=== PATIENT | male | born 1940 ===

== ENCOUNTER 2020-06-21 13:51 | Inpatient (IN) | payer MEDICARE ==
[~2020-06-21] VITALS: Ht 165.1 cm; Wt 66.4 kg
[2020-06-21 19:35] VITALS: BP 159/73
[2020-06-21] MEDS ORDERED: ONDANSETRON 4MG/2ML VIAL IV PRN (20:45)
[2020-06-21] MEDS ORDERED: ACETAMINOPHEN TAB 650MG DOSE (2X325MG) PO PRN (20:45)
--- NOTE | 2020-06-21 20:54 | HPEPDOC ---
General Date of Admission 06/21/20 Date of Service: Jun 21, 2020 Chief Complaint The patient is a 79-year-old male admitted with a reason for visit of Small Bowel Obstruction/Pancreatitis. Source: Patient Exam Limitations: No limitations Timing/Duration: 24 hours Severity: Mild History of Present Illness Patient is 79 years old male with past medical history of hypertension presented to the hospital with abdominal pain around right low and left low quadrants. Earlier today patient was admitted to the [facility] where CT of abdomen was done and showed large hiatal hernia, fluid-filled loops of small bowel with little or no fluid in the colon suggestive of a possible small bowel obstruction versus severe ileus, plus diverticulosis throughout the colon and what appeared to be inflammatory changes in the right lower quadrant, no gallbladder splenic, pancreatic or adrenal abnormalities. Patient stated that he has been having nausea and a few episodes of vomiting for past 24 hours. Labs were done in the [facility] and showed no leukocytosis, lactic acid 1.3, sodium 137, potassium 4, creatinine 0.99. EKG negative for acute ischemic changes. Of note patient had inguinal hernia repair around 25 years ago. Allergies Coded Allergies: Penicillins (Unverified Allergy, Unknown, 06/21/20) Past Medical History Medical History Hypertension, osteoarthritis, hyperlipidemia Surgical History Bilateral inguinal hernias repair Family History I personally reviewed a family history and found not pertinent Social History * Smoker: former Smoker Alcohol: occationally Drugs: denies A-FIB/CHADSVASC A-FIB History Current/History of A-Fib/PAF?: No Current PO Anticoag Therapy: No Review of Systems Constitutional: Denies: Chills Eyes: Denies: Pain ENT: Denies: Head Aches Skin: Denies: Rash Pulmonary: Denies: Dyspnea Cardiovascular: Denies: Chest Pain, Palpitations Gastrointestinal: Reports: Nausea, Vomiting, Abdominal Pain Genitourinary: Denies: Dysuria, Frequency Hematologic: Denies: Bruising Endocrine: Denies: Polydipsia Musculoskeletal: Denies: Neck Pain, Back Pain Neurological: Denies: Weakness, Numbness Psych: Reports: Mood Normal Physical Examination General Exam: Positive: Alert, Cooperative Eye Exam: Positive: PERRLA ENT Exam: Positive: Atraumatic Neck Exam: Positive: Supple; Negative: JVD Chest Exam: Positive: Clear to auscultation Heart Exam: Positive: Rate Normal Telemetry: Positive: No significant arrhythmia Abdomen Exam: Positive: BS Hyperactive, Soft, Tenderness (over right low and left lower quadrants) Extremity Exam: Negative: Clubbing, Cyanosis Skin Exam: Positive: Nl turgor and temperature Neuro Exam: Positive: Strength at 5/5 X4 ext, Cranial Nerves 3-12 NL Psych Exam: Positive: Mental status NL Vital Signs Vital Signs Date Time Temp Pulse Resp B/P (MAP) Pulse Ox O2 Delivery O2 Flow Rate FiO2 06/21/20 19:35 97.4 79 18 159/73 (101) 96 Room Air Assessment/Plan Patient is 79 years old male with past medical history of hypertension presented to the hospital with abdominal pain around right low and left low quadrants. Earlier today patient was admitted to the [facility] where CT of abdomen was done and showed large hiatal hernia, fluid-filled loops of small bowel with little or no fluid in the colon suggestive of a possible small bowel obstruction versus severe ileus, plus diverticulosis throughout the colon and what appeared to be inflammatory changes in the right lower quadrant, no gallbladder splenic, pancreatic or adrenal abnormalities. Patient stated that he has been having nausea and a few episodes of vomiting for past 24 hours. Labs we re done in the [facility] and showed no leukocytosis, lactic acid 1.3, sodium 137, potassium 4, creatinine 0.99, lipase elevated to 1400. EKG negative for acute ischemic changes. Of note patient had inguinal hernia repair around 25 years ago. Problems (1) Abdominal pain Status: Acute Problem Text: CT of abdomen was done and showed large hiatal hernia, fluid- filled loops of small bowel with little or no fluid in the colon suggestive of a possible small bowel obstruction versus severe ileus, plus diverticulosis throughout the colon and what appeared to be inflammatory changes in the right lower quadrant, no gallbladder splenic, pancreatic or adrenal abnormalities Appreciate/agree with surgical consult Lipase elevation most likely secondary to partial small bowel obstruction. Patient does not have left sided upper abdominal pain. CT negative for pancreatitis. IV fluid Nothing by mouth for now Pain management Zofran IV (2) Hypertension Status: Chronic Problem Text: Continue home cardioprotective medication Plan / VTE VTE Prophylaxis Ordered?: Yes ROBINSON CARTER DO Jun 21, 2020 20:54
[2020-06-21] MEDS ORDERED: MORPHINE 2 MG/ML 1ML VIAL (J2270) IV PRN (21:00)
[2020-06-21] MEDS ORDERED: LOSA50TA88 PO (21:04)
[2020-06-21] MEDS ORDERED: PRAV40TA2 PO (21:04)
[2020-06-21] MEDS: D5W 1,000 ML IV SCH (21:06)
[2020-06-21 21:13] LABS: HEMATOCRIT 48.9 % (42.0-52.0); MEAN CORPUSCULAR HEMOGLOBIN 30.1 pg (27.0-33.0); MEAN CORPUSCULAR HGB CONC 32.7 g/dl (32.0-36.5); MEAN CORPUSCULAR VOLUME 91.9 fl (80.0-96.0); PLATELET COUNT, AUTOMATED 180 10^3/uL (150-450); RED BLOOD COUNT 5.32 10^6/uL (4.30-6.10)
[2020-06-21 21:44] LABS: ALT/SGPT 22 U/L (12-78); BILIRUBIN,TOTAL 0.6 MG/DL (0.2-1.0); BLOOD UREA NITROGEN 18 MG/DL (7-18); CALCIUM LEVEL 7.8 MG/DL (8.8-10.2); CARBON DIOXIDE LEVEL 27 MEQ/L (21-32); CHLORIDE LEVEL 107 MEQ/L (98-107); CREATININE FOR GFR 0.86 MG/DL (0.70-1.30); GLOMERULAR FILTRATION RATE > 60.0 (>35); GLUCOSE, FASTING 128 MG/DL (70-100); POTASSIUM SERUM 4.8 MEQ/L (3.5-5.1); SODIUM LEVEL 139 MEQ/L (136-145); TOTAL PROTEIN 5.9 GM/DL (6.4-8.2)
[2020-06-21] MEDS: KETOROLAC 30 MG/ML 1ML VIAL IV SCH (22:01)
--- NOTE | 2020-06-21 22:24 | REPVR ---
PROCEDURE INFORMATION: Exam: XR Abdomen, 1 View Exam date and time: 06/21/2020 8:32 PM Age: 79 years old Clinical indication: Condition or disease; Intestinal condition; Obstruction; Additional info: Sbo TECHNIQUE: Imaging protocol: XR of the abdomen. Views: Frontal supine view of the abdomen. 1 View. COMPARISON: No relevant prior studies available. FINDINGS: Gastrointestinal tract: Mild gas throughout the GI tract without abnormal dilatation. Organs: Probable contrast within the urinary bladder. Bones/joints: Degenerative spurring is noted in the lower thoracic and lumbar spine. Other findings: Prostatic calcification. IMPRESSION: 1. Prostatic calcification with probable contrast in the urinary bladder. 2. Otherwise negative abdomen with mild gas which is within normal limits. Electronically signed by: Zeke Gutierrez On 06/21/2020 22:24:19 PM
[2020-06-22] VITALS: BP 111/53
[2020-06-22] MEDS: KETOROLAC 30 MG/ML 1ML VIAL IV SCH ×4 (04:08→21:00)
[2020-06-22 04:52] LABS: HEMOGLOBIN 14.4 g/dl (13.5-17.5); MEAN CORPUSCULAR HEMOGLOBIN 30.2 pg (27.0-33.0); MEAN CORPUSCULAR HGB CONC 32.7 g/dl (32.0-36.5); MEAN CORPUSCULAR VOLUME 92.2 fl (80.0-96.0); PLATELET COUNT, AUTOMATED 160 10^3/uL (150-450); RED BLOOD COUNT 4.77 10^6/uL (4.30-6.10); WHITE BLOOD COUNT 8.1 10^3/uL (4.0-10.0)
[2020-06-22 05:18] LABS: ALBUMIN 2.7 GM/DL (3.2-5.2); ALT/SGPT 19 U/L (12-78); BILIRUBIN,TOTAL 0.6 MG/DL (0.2-1.0); BLOOD UREA NITROGEN 19 MG/DL (7-18); CALCIUM LEVEL 7.6 MG/DL (8.8-10.2); CARBON DIOXIDE LEVEL 25 MEQ/L (21-32); CHLORIDE LEVEL 106 MEQ/L (98-107); CREATININE FOR GFR 0.73 MG/DL (0.70-1.30); GLOMERULAR FILTRATION RATE > 60.0 (>35); GLUCOSE, FASTING 117 MG/DL (70-100); POTASSIUM SERUM 3.7 MEQ/L (3.5-5.1); SODIUM LEVEL 136 MEQ/L (136-145); TOTAL PROTEIN 5.2 GM/DL (6.4-8.2)
[2020-06-22] MEDS: D5W 1,000 ML IV SCH ×2 (07:30→17:41)
[2020-06-22 08:00] VITALS: BP 144/76
[2020-06-22] MEDS ORDERED: HEPARIN SOD (PORCINE) 5000UNITS/ML 1ML VIAL/SYRINGE SC SCH (09:00)
[2020-06-22] MEDS: LOSARTAN 50MG TABLET PO SCH (10:00)
--- NOTE | 2020-06-22 11:51 | IPNPDOC ---
Date Seen The patient was seen on 06/22/20. Progress Note Hospitalist Attending Physician 06/22/20 Progress note dictated. If urgent written documentation is needed, please 1) call [facility] [phone] for STAT inoculator, and 2)Medical Records [phone] to STAT scan into EMR. VS, I&O, 24H, Fishbone Vital Signs/I&O Vital Signs Date Time Temp Pulse Resp B/P (MAP) Pulse Ox O2 Delivery O2 Flow Rate FiO2 06/22/20 08:00 97.3 68 16 144/76 (98) 94 06/22/20 00:00 Room Air I&O- Last 24 Hours up to 6 AM 06/22/20 06:00 Intake Total 0 ml Output Total 500 ml Balance -500 ml Laboratory Data 24H LABS Laboratory Tests 2 06/21/20 21:02: Nucleated Red Blood Cells % (auto) 0.0, Anion Gap 5L, Glomerular Filtration Rate > 60.0, Calcium Level 7.8L, Total Bilirubin 0.6, Aspartate Amino Transf (AST/SGOT) 22, Alanine Aminotransferase (ALT/SGPT) 22, Alkaline Phosphatase 57, Total Protein 5.9L, Albumin 3.0L, Albumin/Globulin Ratio 1.0 06/21/20 21:03: Lactic Acid Level 1.3 06/22/20 04:39: Nucleated Red Blood Cells % (auto) 0.0, Anion Gap 5L, Glomerular Filtration Rate > 60.0, Calcium Level 7.6L, Total Bilirubin 0.6, Aspartate Amino Transf (AST/ SGOT) 24, Alanine Aminotransferase (ALT/SGPT) 19, Alkaline Phosphatase 50, Total Protein 5.2L, Albumin 2.7L, Albumin/Globulin Ratio 1.1, Lactic Acid Level 1.0, Magnesium Level 2.0 CBC/BMP Laboratory Tests 06/21/20 21:02 06/22/20 04:39 WILLIAN BARRY MD Jun 22, 2020 11:50
[2020-06-22 12:00] VITALS: BP 145/82
[2020-06-22] MEDS ORDERED: PROMETHAZINE INJ 25 MG/ML VIAL (J2550) IV PRN (12:00)
[2020-06-22] MEDS ORDERED: METOCLOPRAMIDE INJ 10MG/2ML VIAL (J2765 PER 1) IV ONE (12:00)
[2020-06-22] MEDS: ONDANSETRON 4MG/2ML VIAL IV SCH ×3 (14:58→21:52)
[2020-06-22 16:00] VITALS: BP 160/77
[2020-06-22] MEDS ORDERED: PRAVASTATIN 20 MG TAB PO SCH (21:00)
[2020-06-22 22:00] VITALS: BP 165/86
[2020-06-22] MEDS ORDERED: NITROGLYCERIN 2% OINT 1 GM *U/D* PKT TOP SCH (22:00)
[2020-06-22 22:36] VITALS: BP 167/87
[2020-06-22] MEDS: NITROGLYCERIN 2% OINT 1 GM *U/D* PKT TOP SCH (23:09)
[2020-06-23] VITALS (10 sets, daily range): BP systolic 129–174; BP diastolic 70–80
[2020-06-23] MEDS: LR 1,000 ML IV SCH ×3 (00:01→21:58)
[2020-06-23] MEDS: PANTOPRAZOLE 40MG VIAL (C9113 PER 1) IV SCH ×2 (00:02→09:28)
[2020-06-23] MEDS: ONDANSETRON 4MG/2ML VIAL IV SCH ×2 (03:00→09:29)
[2020-06-23] MEDS: KETOROLAC 30 MG/ML 1ML VIAL IV SCH ×4 (03:53→21:59)
[2020-06-23] MEDS: NITROGLYCERIN 2% OINT 1 GM *U/D* PKT TOP SCH ×4 (04:00→22:00)
[2020-06-23] MEDS ORDERED: NITROGLYCERIN 2% OINT 1 GM *U/D* PKT TOP SCH (04:00)
[2020-06-23 06:37] LABS: HEMATOCRIT 43.5 % (42.0-52.0); HEMOGLOBIN 14.6 g/dl (13.5-17.5); MEAN CORPUSCULAR HEMOGLOBIN 30.2 pg (27.0-33.0); MEAN CORPUSCULAR HGB CONC 33.6 g/dl (32.0-36.5); MEAN CORPUSCULAR VOLUME 89.9 fl (80.0-96.0); PLATELET COUNT, AUTOMATED 170 10^3/uL (150-450); RED BLOOD COUNT 4.84 10^6/uL (4.30-6.10); WHITE BLOOD COUNT 6.4 10^3/uL (4.0-10.0)
[2020-06-23 06:38] LABS: BASO % 0.2 % (0.0-1.0); LYMPH # 0.9 10^3/uL (1.5-5.0); LYMPH % 14.4 % (24.0-44.0); MONO # 0.6 10^3/uL (0.0-0.8); MONO % 8.5 % (0.0-5.0); NEUTROPHILS # 4.9 10^3/uL (1.5-8.5)
[2020-06-23 07:00] LABS: BLOOD UREA NITROGEN 18 MG/DL (7-18); CALCIUM LEVEL 8.1 MG/DL (8.8-10.2); CARBON DIOXIDE LEVEL 26 MEQ/L (21-32); CHLORIDE LEVEL 101 MEQ/L (98-107); CREATININE FOR GFR 0.78 MG/DL (0.70-1.30); GLOMERULAR FILTRATION RATE > 60.0 (>35); GLUCOSE, FASTING 105 MG/DL (70-100); POTASSIUM SERUM 3.9 MEQ/L (3.5-5.1); SODIUM LEVEL 132 MEQ/L (136-145)
[2020-06-23 07:04] LABS: LYMPHOCYTES 15 % (16-44); MONOCYTES 6 % (0-5); NEUTROPHILS 79 % (28-66)
[2020-06-23 07:05] LABS: PLATELET ESTIMATE NORMAL (NORMAL)
[2020-06-23] MEDS: LOSARTAN 50MG TABLET PO SCH (09:28)
[2020-06-23] MEDS ORDERED: BUPIVACAINE HCL 0.25% 30ML VIAL As Ordered ONE (14:21)
[2020-06-23] MEDS ORDERED: ETOMIDATE INJ 20MG/10ML VIAL As Ordered ONE (15:03)
[2020-06-23] MEDS ORDERED: ROCURONIUM BROMIDE 50 MG/5 ML VIAL As Ordered ONE ×2 (15:03→15:19)
[2020-06-23] MEDS ORDERED: ONDANSETRON 4MG/2ML VIAL As Ordered ONE (15:03)
[2020-06-23] MEDS ORDERED: propofoL 200 MG/20 ML VIAL As Ordered ONE (15:03)
[2020-06-23] MEDS ORDERED: dexameTHASONE 4 MG/ML 1ML VIAL (J1100 PER 1MG) As Ordered ONE (15:03)
[2020-06-23] MEDS ORDERED: fentaNYL 250 MCG/5 ML INJECTION (J3010) As Ordered ONE (15:03)
[2020-06-23] MEDS ORDERED: METOCLOPRAMIDE INJ 10MG/2ML VIAL (J2765 PER 1) As Ordered ONE (15:03)
[2020-06-23] MEDS ORDERED: SUGAMMADEX SODIUM 500 MG/5 ML VIAL (BRIDION) As Ordered ONE (15:03)
[2020-06-23] MEDS ORDERED: LIDOCAINE 2% 100MG/5ML SDV (FOR ANES.) As Ordered ONE (15:04)
[2020-06-23] MEDS ORDERED: PHENYLephrine HCL 500 MCG/5 ML (100MCG/ML) SYRINGE (J2370) As Ordered ONE (15:06)
[2020-06-23] MEDS ORDERED: cefoTEtan INJ 2GM VIAL (S0074 PER 500MG) As Ordered ONE (15:06)
[2020-06-23] MEDS ORDERED: ePHEDrine SULFATE 25 MG/5 ML(5MG/ML) SYRINGE As Ordered ONE (15:06)
[2020-06-23] MEDS ORDERED: HYDROmorphone HCL 2 MG/ML 1ML VIAL (J1170) As Ordered ONE (15:58)
[2020-06-23] MEDS ORDERED: DESFLURANE 240 ML INHALANT As Ordered ONE (16:13)
[2020-06-23] MEDS ORDERED: ACETAMINOPHEN 1000MG 100ML IV BTL (OFIRMEV) (J0131 PER 10MG) As Ordered ONE (16:23)
[2020-06-23] MEDS ORDERED: MORPHINE 2 MG/ML 1ML VIAL (J2270) IV PRN (17:00)
[2020-06-23] MEDS ORDERED: ONDANSETRON 4MG/2ML VIAL IV PRN ×2 (17:00→17:15)
[2020-06-23] MEDS ORDERED: oxyCODONE 5MG TAB PO PRN (17:15)
[2020-06-23] MEDS ORDERED: fentaNYL 100 MCG/2 ML INJECTION (J3010) IV PRN (17:15)
[2020-06-24] MEDS: KETOROLAC 30 MG/ML 1ML VIAL IV SCH ×3 (05:15→16:00)
[2020-06-24] MEDS: LR 1,000 ML IV SCH ×2 (05:15→08:54)
[2020-06-24] MEDS: NITROGLYCERIN 2% OINT 1 GM *U/D* PKT TOP SCH ×4 (05:20→21:33)
[2020-06-24 06:00] VITALS: BP 134/77
[2020-06-24] MEDS: PANTOPRAZOLE 40MG VIAL (C9113 PER 1) IV SCH (08:54)
[2020-06-24] MEDS: LOSARTAN 50MG TABLET PO SCH (08:56)
[2020-06-24 10:00] VITALS: BP 134/67
[2020-06-24 11:49] LABS: HEMATOCRIT 35.9 % (42.0-52.0); MEAN CORPUSCULAR HEMOGLOBIN 30.2 pg (27.0-33.0); MEAN CORPUSCULAR HGB CONC 33.4 g/dl (32.0-36.5); MEAN CORPUSCULAR VOLUME 90.2 fl (80.0-96.0); PLATELET COUNT, AUTOMATED 154 10^3/uL (150-450); RED BLOOD COUNT 3.98 10^6/uL (4.30-6.10); WHITE BLOOD COUNT 5.8 10^3/uL (4.0-10.0)
[2020-06-24 12:21] LABS: BLOOD UREA NITROGEN 23 MG/DL (7-18); CALCIUM LEVEL 8.1 MG/DL (8.8-10.2); CARBON DIOXIDE LEVEL 30 MEQ/L (21-32); CHLORIDE LEVEL 104 MEQ/L (98-107); CREATININE FOR GFR 0.94 MG/DL (0.70-1.30); GLOMERULAR FILTRATION RATE > 60.0 (>35); GLUCOSE, FASTING 89 MG/DL (70-100); MAGNESIUM LEVEL 2.1 MG/DL (1.8-2.4); POTASSIUM SERUM 4.4 MEQ/L (3.5-5.1); SODIUM LEVEL 137 MEQ/L (136-145)
[2020-06-24 14:00] VITALS: BP 136/67
--- NOTE | 2020-06-24 17:36 | CR ---
DATE OF CONSULTATION: 06/21/2020 REASON FOR CONSULTATION: Abdominal pain. HISTORY OF PRESENT ILLNESS: The patient is an 79-year-old man who reports that he was awakened at approximately 2345 hours on 06/20/2020. He described a sensation of feeling full and perhaps needing to have a bowel movement. He described discomfort across the lower quadrants of the abdomen. He got out of bed and tried to find a comfortable position. At one point, he tried drinking half a cup of tea and eating a few prunes thinking that if he could stimulate his bowels he would feel better, but he developed a small amount of nausea and vomiting. He denied any definite fevers or chills. He did at one point feel as if he would feel better if he could throw up and he induced vomiting without any result. The pain become more severe as the morning came on and he presented at [facility] for evaluation. At [place], he underwent evaluation with some lab work. He had a CT scan of the abdomen and pelvis obtained. His labs showed some mild elevations of his amylase and lipase but his liver function tests were apparently otherwise unremarkable. Other electrolytes and hematologic studies were without significant abnormality. CT scan was interpreted as showing possibly an ileus versus a partial small bowel obstruction. The provider at [facility] contacted the hospitalist at [facility] and also myself and, after discussing this, the patient was transferred to [facility] for admission by the hospitalist. I am now requested to see the patient and offer a surgical opinion. ALLERGIES: The patient reports his only allergy is to the use of steroids and antibiotics at the same time, which apparently has caused him to develop jaundice on two prior occasions. MEDICATIONS: The patients only medications prior to admission include: - pravastatin - losartan MEDICAL HISTORY: Significant for some hypertension and also hyperlipidemia. He does have a history of some osteoarthritis. SURGICAL HISTORY: Significant for a left inguinal hernia repair. He has had a right knee replacement and bilateral cataract extractions. He has had several colonoscopies, most recently just over a year ago in [place], [place]. SOCIAL HISTORY: He is reportedly a former smoker and has alcohol occasionally. FAMILY HISTORY: Not helpful. REVIEW OF SYSTEMS: Reveals no history of chest pain or palpitations. He denies any history of seizure or stroke. He has had no history of deep venous thrombosis (DVT) or pulmonary embolus. He denies dysuria but does have nocturia times one as well as some weakening of his urinary stream. He has a history of kidney stones 40 years ago with no recurrence. He denies any melena or hematochezia. He has some joint issues with some arthritis but no significant limitation on his activity. PHYSICAL EXAMINATION: Most recent vital signs show a temperature of 97.4, with a pulse of 79, respirations of 18, and a blood pressure of 159/73. Pulse oximetry on room air was 96%. Patient is lying quietly on his bed. He is alert and oriented and appears comfortable at rest. Skin is warm and dry. Sclerae are anicteric. Mucous membranes are moist. The neck is supple without mass. Heart exam shows a regular rate and rhythm. Lungs are clear to auscultation bilaterally. He has no edema in the upper extremities and he has palpable radial pulses bilaterally. Abdomen is flat. He has an old oblique left lower quadrant scar consistent with a prior hernia repair. He has bowel sounds present in all four quadrants. There is some very mild tympany in all four quadrants to percussion. Palpation shows the abdomen to be soft throughout though he has some mild direct tenderness in the lower quadrants bilaterally perhaps slightly more on the right than the left. There is no evidence of inguinal or umbilical hernia. He has no inguinal adenopathy. The lower extremities are without edema and he has palpable dorsalis pedis pulses bilaterally. His laboratory studies from [place] were reviewed. He did have mild to moderate elevations of the amylase and lipase with the lipase up to approximately 1400. The remainder of his labs were without significant abnormality and a lactic acid was normal. I reviewed the images of the CT scan that were provided on a disc. The images showed no free intraabdominal fluid or air. The solid organs are without significant abnormality. There is some air and fluid in the small bowel. There is some mild distention of several small segments of the bowel but this does not have an appearance typical for a small bowel obstruction. There is some air in the colon as well as a small amount of stool on the right. The gallbladder is not well seen but there are no abnormalities present. The appendix is noted and appears normal. He does have a hiatal hernia of moderate size. KUB done at [facility] after arrival shows some air-filled small bowel loops basically throughout the abdomen with some air in the right colon as well. There is some contrast in the bladder. He had repeat laboratory studies at 2100 hours at [facility] and these show a white count of 10, hemoglobin 16, hematocrit of 49, and a platelet count of 180,000. Chemistries showed normal electrolytes with a BUN of 18, creatinine 0.86, and a glucose of 128. Lactic acid was 1.3. Liver function tests were normal with a total protein of 5.9 and an albumin of 3.0. IMPRESSION: Patient has abdominal pain of unclear etiology. His discomfort is primarily across the lower quadrants bilaterally. He has not had any intraabdominal surgery to create adhesions. There is no tumor evident within the abdomen nor any process causing a clearcut obstruction. RECOMMENDATIONS: At this point, I would recommend observation overnight. He should remain nothing by mouth for now and continue on some IV maintenance fluid. Analgesics are certainly appropriate as needed. I do not see any need for antibiotics at this time as we have not identified an infection. He should have repeat labs in the morning to see if there has been any significant changes overnight. I will reassess him in the morning personally. If he has significant persistent pain, it may be worth considering either repeating his scan or even considering a diagnostic laparoscopy. The patient was counseled that the etiology of his pain is not clear but that I do think it is appropriate for him to be monitored in the hospital and to be reassessed in the morning. He is agreeable with this plan. EVANGELIST
--- NOTE | 2020-06-24 17:40 | IPN ---
DATE: 06/22/2020 HISTORY: Patient was admitted by the hospitalist yesterday with some abdominal pain which was fairly diffuse initially and became somewhat more localized through the lower quadrant. He has had some mild abdominal distention. Today, he has had several episodes of some limited quantities of emesis with some bilious fluid. He remains nothing by mouth. He denies any passage of flatus or stool. A repeat KUB last evening was more suggestive of a small bowel obstruction with a lot of air throughout the small bowel. Vital signs show that he has been afebrile. His pulse is in the 60s to 80s and his blood pressure is normal to slightly hypertensive with a systolic in the 160s. Room air oxygen saturation is normal. Intake and output shows that he has had fairly balanced intake and output. PHYSICAL EXAMINATION: Patient is alert. He appears somewhat uncomfortable. He is alert and oriented. Heart exam shows a regular rhythm. The abdomen is mildly protuberant. He does have some bowel sounds present. There is some mild tenderness particularly in the right lower quadrant. There is perhaps some mild tympany to percussion throughout the abdomen. LABORATORY STUDIES: Today, show a white of 8, hemoglobin 14, hematocrit 44, and a platelet count of 160,000. His chemistry profile shows sodium 136, potassium 3.7, chloride 106, CO2 of 25, BUN of 19, creatinine 0.7, and a glucose of 117. Lactic acid is 1.0. His acute abdominal series today shows some differential air fluid levels on the upright. The proximal right colon has a small amount of air and stool present. There is no free air noted. I reviewed his CT scan and in retrospect I believe there likely is some sort of obstructing band or twist in the distal ileum in the right lower quadrant. This is not discrete, but there appears to be a bunched area of small bowel which is perhaps slightly more distended than other areas of the abdomen. IMPRESSION: Small bowel obstruction. PLAN: Patient was counseled that if he has not improved by tomorrow morning he should have surgery and I would attempt to perform this laparoscopically. We discussed a possible nasogastric (NG) tube, but this was attempted four times at [facility] without success and it was quite uncomfortable to him and we will not reattempt placement. He will remain on some IV hydration. We will see how he looks in the morning. EVANGELIST
[2020-06-24 18:00] VITALS: BP 132/77
[2020-06-24] MEDS ORDERED: IBUPROFEN 400 MG TAB PO PRN (18:00)
[2020-06-24 22:00] VITALS: BP 138/76
[2020-06-25 02:00] VITALS: BP 140/80
[2020-06-25] MEDS: NITROGLYCERIN 2% OINT 1 GM *U/D* PKT TOP SCH (04:39)
[2020-06-25 06:00] VITALS: BP 149/71
[2020-06-25 06:35] LABS: BASO % 0.2 % (0.0-1.0); EOS # 0.1 10^3/uL (0.0-0.5); EOS % 2.8 % (0.0-3.0); HEMATOCRIT 39.6 % (42.0-52.0); LYMPH # 1.1 10^3/uL (1.5-5.0); LYMPH % 22.5 % (24.0-44.0); MEAN CORPUSCULAR HGB CONC 32.8 g/dl (32.0-36.5); MEAN CORPUSCULAR VOLUME 91.2 fl (80.0-96.0); MONO # 0.5 10^3/uL (0.0-0.8); MONO % 9.7 % (0.0-5.0); NEUTROPHILS # 3.3 10^3/uL (1.5-8.5); NEUTROPHILS % 64.4 % (36.0-66.0); PLATELET COUNT, AUTOMATED 154 10^3/uL (150-450); RED BLOOD COUNT 4.34 10^6/uL (4.30-6.10); WHITE BLOOD COUNT 5.1 10^3/uL (4.0-10.0)
[2020-06-25 07:08] LABS: BLOOD UREA NITROGEN 20 MG/DL (7-18); CALCIUM LEVEL 7.8 MG/DL (8.8-10.2); CARBON DIOXIDE LEVEL 28 MEQ/L (21-32); CHLORIDE LEVEL 105 MEQ/L (98-107); CREATININE FOR GFR 0.71 MG/DL (0.70-1.30); GLOMERULAR FILTRATION RATE > 60.0 (>35); GLUCOSE, FASTING 84 MG/DL (70-100); POTASSIUM SERUM 3.9 MEQ/L (3.5-5.1); SODIUM LEVEL 137 MEQ/L (136-145)
[2020-06-25 08:17] VITALS: BP 149/72
[2020-06-25] MEDS: LOSARTAN 50MG TABLET PO SCH (08:17)
--- NOTE | 2020-06-25 09:11 | IPN ---
DATE: 06/23/2020 SUBJECTIVE: Patient is seen and examined at the bedside. Chart has been reviewed. Patients blood pressure has been uncontrolled due to abdominal discomfort, was given nitroglycerin 1 gram every 6 hours and losartan 50 daily. Patient is awaiting lysis of adhesions, surgical exploration for small bowel obstruction. This morning, continues to have some nausea, had two episodes of emesis this morning, did pass a little bit of flatus earlier but still with increasing abdominal distention. No fever or chills overnight. No shortness of breath despite IV fluids since admission. He denies any chest pain, pressure, tightness, palpitations, or lightheadedness. No dysuria, urgency, frequency. OBJECTIVE: PHYSICAL EXAMINATION: Vital signs: Temperature 98.2, pulse 83, respiratory rate 19, blood pressure 136/74, 97% on room air. Generally: Awake, alert, oriented times three, answering questions appropriately. Anicteric. No jaundice or icterus. Patient has no jugular venous distension, no thyromegaly, no cervical lymphadenopathy. Lungs: Clear to auscultation. Abdomen: Distended, much more so today. No rebound or guarding. Hypoactive bowel sounds throughout. Extremities: No cyanosis, clubbing, or pitting edema. White count 6.4, hemoglobin 14, hematocrit 43, platelet count 170, sodium 132, potassium 3.9, chloride 101, bicarbonate 26, BUN 18, creatinine 0.78, glucose of 105. Abdominal x-ray prostatic calcification with positive contrast in urinary bladder. Negative abdomen with mild gas within normal limits. ASSESSMENT AND PLAN: This is an 79-year-old male admitted on 06/21/2020 with history of hypertension, history of hernia repair in the past bilaterally, presents with increasing abdominal distention, nausea, vomiting, found to have possible small bowel obstruction versus ileus. Patient did not improve, unable to pass nasogastric (NG) tube, currently with the following issues: 1. Small bowel obstruction. 2. Uncontrolled hypertension. 3. History of inguinal hernia repair bilaterally. PLAN: Per Dr. Azul, patient is to undergo lysis of adhesions, exploratory laparotomy in the operating room for small bowel obstruction today. No obstruction was seen on the CT abdomen and pelvis. Patient is kept nothing by mouth with IV fluids. Nitro patch per anesthesia is to be held for now. He is medically optimized to proceed to surgery. Deep venous thrombosis (DVT) prophylaxis via compression stockings. Patients Lovenox has been discontinued as of yesterday. MTDD
--- NOTE | 2020-06-25 09:12 | IPN ---
DATE: 06/24/2020 SUBJECTIVE: Patient seen and examined at bedside. Chart has been reviewed. This morning, patient said he is tolerating his mick orly at the bedside, passing flatus, 2/10 pain from the incision site from prior laparoscopy, laparotomy, and decompression of the small bowel. OBJECTIVE: PHYSICAL EXAMINATION: VITAL SIGNS: Temperature 98.5, pulse 73, respiratory rate 17, blood pressure 134/67, 94% on room air. GENERAL: Patient is awake, alert, oriented times three, answering questions appropriately. No respiratory distress. No jugular venous distention (JVD) or thyromegaly. Dry mucous membranes. LUNGS: Clear to auscultation. No wheezing, rales, or rhonchi. HEART: S1, S2, sinus rhythm. ABDOMEN: Soft, slightly tender to palpation. Positive bowel sounds. EXTREMITIES: No cyanosis, clubbing, or pitting edema. June 23 CBC has been reviewed, metabolic panel. ASSESSMENT AND PLAN: This is an 79-year-old male, admitted on 06/21/2020 with complaints of abdominal pain, distention, prior history of bilateral inguinal hernia repair, diagnosed with possible ileus versus small-bowel obstruction. Transferred from [facility]. Evaluated by general surgery. Failed on supportive care with intractable, nausea, vomiting, and increasing abdominal distention. Patient was brought to the operating room, status post laparoscopy, laparotomy, and decompression of the small bowel on 06/23/2020, currently on a clear liquid diet, managed by surgery. IMPRESSION: 1. Small-bowel obstruction, status post laparoscopy, laparotomy with decompression of the small bowel on 06/23/2020. Postoperative management per general surgery, Dr. Azul. He is currently still on intravenous (IV) fluids. Clear liquid diet, to be advanced by general surgery. Activity as tolerated. Physical therapy (PT)/occupational therapy (OT). 2. Hypertension, uncontrolled secondary to pain. Improved and resumed back on his home dose of losartan. DISPOSITION: PT clearance and general surgical clearance prior to discharge home. [facility]
--- NOTE | 2020-06-25 09:14 | REP ---
ABDOMINAL SERIES: 3-VIEWS HISTORY: Question small bowel obstruction. COMPARISON: KUB study 06/21/2020. FINDINGS: Upright chest radiograph shows no evidence of infiltrate or free subdiaphragmatic air. Heart is not enlarged. The aorta is calcific and somewhat tortuous. Supine and erect views of the abdomen show multiple dilated central abdominal small bowel loops. There is some stool in the right colon, but in general there is a paucity of distal bowel gas consistent with small bowel obstruction pattern. The small bowel distention is more prominent today than on the 06/21/2020 study. No evidence of free air. Prostate calcifications are observed as before. Differential air fluid levels are seen on the upright film. IMPRESSION: Small bowel obstruction pattern. Small bowel dilation somewhat more prominent than on the previous day study. MTDD
[2020-06-25 10:00] VITALS: BP 141/70
[2020-06-25] MEDS ORDERED: IBUP40TA PO (12:54)
[2020-06-25] MEDS ORDERED: ACET1TAB55 PO (12:54)
--- NOTE | 2020-06-25 12:57 | IPNPDOC ---
Date Seen The patient was seen on 06/25/20. Progress Note SUBJECTIVE: Patient seen and examined at bedside. Chart has been reviewed. Patient has not had a bowel movement tolerated his liquid diet currently advanced to regular diet. He spasm safety evaluation. Denies any nausea, vomiting. He says that he does have a little bit of achiness at the surgical sites, but doing well. Rating the pain as 2 out of 10 on a pain scale well alleviated with Tylenol and Advil. OBJECTIVE: PHYSICAL EXAMINATION: VITAL SIGNS: see below GENERAL: Patient is awake, alert, oriented times three, answering questions appropriately. No respiratory distress. No jugular venous distention (JVD) or thyromegaly. Dry mucous membranes. LUNGS: Clear to auscultation. No wheezing, rales, or rhonchi. HEART: S1, S2, sinus rhythm. ABDOMEN: Soft, slightly tender to palpation. Positive bowel sounds. EXTREMITIES: No cyanosis, clubbing, or pitting edema. Laboratory data please see below ASSESSMENT AND PLAN: This is an 79-year-old male, admitted on 06/21/2020 with complaints of abdominalpain, distention, prior history of bilateral inguinal hernia repair, diagnosed with possible ileus versus small-bowel obstruction. Transferred from [facility]. Evaluated by general surgery. Failed on supportive care with intractable, nausea, vomiting, and increasing abdominal distention. Patient was brought to the operating room, status post laparoscopy, laparotomy, and dec ompression of the small bowel on 06/23/2020, currently on a clear liquid diet, managed by surgery. IMPRESSION: 1. Small-bowel obstruction, status post laparoscopy, laparotomy with decompression of the small bowel on 06/23/2020. 2. Hypertension 3. History of hernia repair PLAN: Patient is clinically doing well. Has no nausea or vomiting, fever or chills overnight. He is tolerating his liquid diet and has recently been advanced to a regular diet by a surgeon. Patient has passed a home safety e valuation and may be discharged home if cleared by surgery where awaiting a bowel movement intolerance of solid diet before he is released from the hospital VS, I&O, 24H, Fishbone Vital Signs/I&O Vital Signs Date Time Temp Pulse Resp B/P (MAP) Pulse Ox O2 Delivery O2 Flow Rate FiO2 06/25/20 10:00 98.5 77 16 141/70 (93) 92 Room Air 06/23/20 17:50 2.0 I&O- Last 24 Hours up to 6 AM 06/25/20 06:00 Intake Total 850 ml Output Total 1165 ml Balance -315 ml Laboratory Data 24H LABS Laboratory Tests 2 06/25/20 06:08: Immature Granulocyte % (Auto) 0.4, Neutrophils (%) (Auto) 64.4, Lymphocytes (%) (Auto) 22.5L, Monocytes (%) (Auto) 9.7H, Eosinophils (%) (Auto) 2.8, Basophils (%) (Auto) 0.2, Neutrophils # (Auto) 3.3, Lymphocytes # (Auto) 1.1L, Monocytes # (Auto) 0.5, Eosinophils # (Auto) 0.1, Basophils # (Auto) 0.0, Nucleated Red Bl ood Cells % (auto) 0.0, Anion Gap 4L, Glomerular Filtration Rate > 60.0, Calcium Level 7.8L CBC/BMP Laboratory Tests 06/25/20 06:08 WILLIAN BARRY MD Jun 25, 2020 12:57
[2020-06-25 14:00] VITALS: BP 143/75
--- NOTE | 2020-06-26 10:57 | DS.PDOC ---
Discharge Summary General Date of Admission Jun 21, 2020 at 19:35 Date of Discharge 06/25/20 Discharge Summary DISCHARGE DIAGNOSES Small bowel obstruction HTN, uncontrolled History of hernia repair DISCHARGE MEDICATIONS: see below DISCHARGE INSTRUCTIONS: Post-op management per dudley Garzon within 1 wk w PCP and general deliverer food: Gen. surgery, Dr. KIMBERLYN HUNTER PROCEDURES DURING THIS ADMISSION: 06/23/2020 LAPAROSCOPY, LAPAROTOMY WITH DECOMPRESSION OF THE SMALL BOWEL HOSPITAL COURSE: This is an 79-year-old male, admitted on 06/21/2020 with complaints of abdominalpain, distention, prior history of bilateral inguinal hernia repair, diagnosed with possible ileus versus small-bowel obstruction. Transferred from [facility]. Evaluated by general surgery. Failed on supportive care with intractable, nausea, vomiting, and increasing abdominal distention. Patient was brought to the operating room, status post laparoscopy, laparotomy, and decompression of the small bowel on 06/23/2020, currently on a clear liquid diet, managed by surgery. Small-bowel obstruction, status post laparoscopy, laparotomy with decompression of the small bowel on 06/23/2020. . He was admitted to hospitalist service for general surgery's consult and was kept nothing by mouth despite attempts at nasogastric tube placement, none could be placed after 3 failed attempts. Patient was kept on IV fluids with persistent abdominal distention, intractable nausea and vomiting. Abdominal film showed some air by clinically was worsening. He was brought to the operating room on 06/23/2020 for decompression of the small bowel and laparotomy by Dr. Azul, general surgeon. His diet was advanced. Initially from clears to full liquids and eventually into a solid diet which he tolerated well without nausea or vomiting. . He remained stable and was subsequently discharged home with outpatient follow-up as general surgery. Hypertension Due to uncontrolled hypertension from severe pain from the abdominal distention due to small bowel obstruction. Patient was given nitroglycerin patch once his nausea and vomiting subsided. He was restarted back on his oral medication with significant improvement after a laparotomy and decompression of the small bowel. DISCHARGE PHYSICAL EXAMINATION: VITAL SIGNS: see below GENERAL: Patient is awake, alert, oriented times three, answering questions appropriately. No respiratory distress. No jugular venous distention (JVD) or thyromegaly. Dry mucous membranes. LUNGS: Clear to auscultation. No wheezing, rales, or rhonchi. HEART: S1, S2, sinus rhythm. ABDOMEN: Soft, slightly tender to palpation. Positive bowel sounds. EXTREMITIES: No cyanosis, clubbing, or pitting edema. DISCHARGE LABORATORY DATA: see below IMAGING STUDIES: see chart TIME SPENT ON DISCHARGE: 30 MINUTES Vital Signs/I&Os Vital Signs Date Time Temp Pulse Resp B/P (MAP) Pulse Ox O2 Delivery O2 Flow Rate FiO2 06/25/20 14:00 99.2 82 18 143/75 (97) 91 Room Air 06/23/20 17:50 2.0 I&O- Last 24 Hours up to 6 AM 06/26/20 06:00 Intake Total 240 ml Balance 240 ml Discharge Medications Scheduled Losartan Potassium (Losartan Potassium) 50 Mg Tablet, 50 MG PO DAILY, (Reported) Pravastatin Sodium (Pravastatin Sodium) 40 Mg Tablet, 40 MG PO QHS, (Reported) Scheduled PRN Acetaminophen (Acetaminophen) 325 Mg Tablet, 650 MG PO Q4H PRN for PAIN OR FEVER Ibuprofen (Ibuprofen) 400 Mg Tablet, 400 MG PO Q6HP PRN for MILD/MODERATE PAIN (PS 1-7) Allergies Coded Allergies: Penicillins (Unverified Allergy, Unknown, 06/21/20) Uncoded Allergies: ANTIBIOTICS (Adverse Reaction, Intermediate, TAKEN WITH STEROIDS: TURNS YELLOW, 06/21/20) STEROIDS (Adverse Reaction, Intermediate, TAKEN WITH ANTIBIOTICS: TURNS YELLOW, 06/21/20) WILLIAN BARRY MD Jun 26, 2020 10:57
--- NOTE | 2020-06-29 12:35 | IPN ---
DATE: 06/24/2020 HISTORY: Patient is now postoperative day #1, from laparoscopy followed by laparotomy with evaluation of his small bowel, drainage of some peritoneal fluid, and decompression of the small bowel. He clearly had had a small-bowel obstruction as a closed loop obstruction, likely related to some bands of appendices epiploicae in the right lower quadrant. The obstruction was likely resolved just before we took him to the operating room. He has done well overnight. He has had some very limited clear liquids but denies any nausea or vomiting and has had some flatus. Vital signs show that he has been afebrile overnight. His pulse is in the 80s generally and his blood pressure is good. His intake and output show that he had 3600 in yesterday with 1500 out. He reports he has been voiding well, though this is not fully recorded. PHYSICAL EXAMINATION: Patient is awake and alert. He denies any significant pain but admits to some soreness along his lower abdominal incision. Heart exam shows a regular rhythm. The lungs are clear. The abdomen is soft. He has bowel sounds present. His dressing is clean and dry. LABORATORY STUDIES: White count of 6, hemoglobin 12, hematocrit 36, and a platelet count of 154,000. Chemistry profile shows normal electrolytes with a BUN of 23, creatinine 1, and a glucose of 89. IMPRESSION: Patient has doing well, now 1 day postoperative from laparoscopy and laparotomy. He appears to have good return of bowel function in process. PLAN: He will be advanced from clear liquids to full liquids. I will saline lock his intravenous (IV). He is encouraged to be up ambulating. If he does well with the full liquids, we will advance him to a regular diet in the morning and even consider discharge tomorrow. EVANGELIST
--- NOTE | 2020-06-29 12:37 | IPN ---
DATE: 06/25/2020 HISTORY: Patient is now postoperative day #2 from his laparoscopy and laparotomy for a bowel obstruction. He has had several bowel movements with passage of flatus. He has been tolerating a regular diet well, though he does have some scratchiness in his throat, likely related either to his intubation or nasogastric (NG) tube. He has not had any nausea or vomiting. He reports discomfort in his abdomen only when he coughs. Vital signs reveal that he has been afebrile over the past 24 hours. His pulse is in the 70s to low 80s. Blood pressure is good. Room air oxygen saturation is fine. Intake and output show that yesterday he had 900 mL recorded in with 1300 recorded out. PHYSICAL EXAMINATION: Patient is awake and alert. He appears fairly comfortable. Heart and lung exams are unremarkable. His dressing is removed, and his incisions are nicely approximated with skin melvina. The abdomen is soft and without any undue tenderness. He has bowel sounds present. Laboratory studies today show a white count of 5, hemoglobin 13, hematocrit 40, and a platelet count of 154,000. His chemistry profile shows normal electrolytes, BUN, creatinine, and glucose. IMPRESSION: Patient is doing very well and is tolerating a regular diet. PLAN: Patient can be discharged home today. He will be staying in [place], where he spends the summer. I advised him that he should avoid any strenuous physical activity or lifting more than 20-25 pounds for another month. He can shower as desired. He can cover the wound if he desires with a dry gauze for some padding. He should followup in my office in the next week to 10 days to have his surgical melvina removed and to followup as to his healing. I provided him with the office phone number, and he should call if there are any problems. EVANGELIST
--- NOTE | 2020-07-07 10:50 | RO ---
DATE OF OPERATION: 06/23/2020 PREOPERATIVE DIAGNOSIS: Small bowel obstruction. POSTOPERATIVE DIAGNOSIS: Small bowel obstruction with small bowel hemorrhage. PROCEDURE: Laparoscopy with laparotomy with drainage of hemorrhagic fluid and decompression of the small bowel. SURGEON: Jose Manuel Azul MD WIRE WALKER: ANESTHESIA: General. INDICATIONS FOR THE PROCEDURE: Patient is an 79-year-old man who had presented to the hospital with some abdominal pain becoming more localized to the right lower quadrant. His clinical picture became more consistent with a small bowel obstruction. He had no history of prior surgery so he was initially observed but showed failure to resolve his obstruction. He is, therefore, now for a laparoscopy for possible lysis of adhesions with possible laparotomy as needed. DESCRIPTION OF OPERATIVE PROCEDURE: The patient was brought to the operating room and placed on the table in a supine position. He was placed under general endotracheal anesthesia. A Land catheter was inserted. The patients abdomen was prepped and draped in a sterile fashion. Initially, I elected to proceed with laparoscopy. Local anesthesia was achieved in the supraumbilical region. A Veress needle was inserted and after a positive hanging drop test, the abdomen was inflated with carbon dioxide gas. A 5 mm port was placed over a 5 mm scope and advanced through the abdominal wall without difficulty. On entering the abdomen, it was clear that there was some diffuse distention of the small bowel by air and fluid. I inspected the abdomen as thoroughly as possible but the small bowel largely filled the abdomen leaving little room to maneuver. It was clear that he had some free bloody fluid in the pericolic gutters and up around the liver. There were portions of the small bowel lower in the mid and right lower portions of the abdomen that appeared somewhat hemorrhagic. Unfortunately, it was impossible to do a thorough examination of the small bowel given the small bowel distention. I, therefore, elected to proceed with a laparotomy to better evaluate the bowel as to the source of the bleeding and to evaluate the obstruction. The abdomen was, therefore, deflated. The single trocar was removed. A midline incision was made from just below the umbilicus extending down toward the pubis. This was deepened down through the subcutaneous tissues and the midline fascia was opened. The peritoneum was opened and retractors were placed. Several hundred mL of bloody fluid was aspirated with suction. The small bowel was delivered through the wound. There were several feet of distal small bowel that were quite reddened and hemorrhagic in appearance but where clearly viable. The bowel was run from the ligament of Treitz to the terminal ileum. There was no definite remaining obstruction but it was clear that the obstruction had been low in the right lower quadrant based on the position of the hemorrhagic portion of the bowel. With further inspection, it was noted that there were several appendices at the epiploicae of the sigmoid colon in the right lower quadrant that were quite long and one appeared inflamed or even necrotic. I believe that these had represented the source of his obstruction but it appears that the obstruction had resolved either just before or during the early part of the procedure. These longer inflamed fatty tags were excised and discarded. The small bowel was decompressed by creating a small enterotomy in the antimesenteric surface of the mid small bowel. A long suction catheter was inserted proximally and distally and a large amount of fluid and air was removed. The suction was then removed and the enterotomy was closed in two layers with 3-0 Vicryl. This area was washed off. The abdomen was irrigated to remove any remaining bloody fluid. By palpation, the liver seemed normal. There were no other obvious abnormalities. The small bowel was returned to the abdomen in anatomic distribution. The peritoneum was then closed with a running suture of #1 Vicryl. The fascia was then closed with interrupted simple sutures of #1 Vicryl. The skin incision was closed with skin melvina as was the trocar site above the umbilicus. The patient tolerated the procedure well without apparent complication. The Land catheter was removed. He was awakened in the operating room and extubated and moved to the recovery room in stable condition. EVANGELIST
== END 2020-06-25 16:47 | disposition home or self-care (01) | DRG 331 ==
LOC: M PCU 19:35 → M MSPAV 06-22 15:48
PROVIDERS: ADMIT Internal Medicine; ATTEND General Practice
PROC: 0DCW0ZZ Extirpation of Matter from Peritoneum, Open Approach (ICD-10-PCS; 2020-06-23)
PROC: 0DBN0ZZ Excision of Sigmoid Colon, Open Approach (ICD-10-PCS; principal; 2020-06-23 11:45)
DX: K56.600 Partial intestinal obstruction, unspecified as to cause (principal); K44.9 Diaphragmatic hernia without obstruction or gangrene; I10 Essential (primary) hypertension; E78.5 Hyperlipidemia, unspecified; M19.90 Unspecified osteoarthritis, unspecified site; Z87.891 Personal history of nicotine dependence; Z88.0 Allergy status to penicillin; Z79.899 Other long term (current) drug therapy; Z96.651 Presence of right artificial knee joint; Z98.41 Cataract extraction status, right eye; Z98.42 Cataract extraction status, left eye; Z53.31 Laparoscopic surgical procedure converted to open procedure